=== PATIENT | female | born 1945 | race Caucasian/White ===

== ENCOUNTER 2020-09-25 01:01 | Observation (INO) | payer MEDICARE ==
[2020-09-25] VITALS (13 sets, daily range): BP systolic 82–187; BP diastolic 32–99
[~2020-09-25] VITALS: Ht 147.3 cm; Wt 45.9 kg
--- NOTE | 2020-09-25 01:05 | NUR ---
ARRIVED PT ARRIVE POV W/SON, REPORT CHRONIC DETENTION ESOSPHAGEAL SPASMS AND ISSUES. PT WAS EATING AT 7:30 PM, NOW FEELS LIKE SHE HAS SOMETHING IN HER THROAT, NOT SURE IF SPASPS OR AN OBJECT. RR REGULAR, NON-LABORED. PT DENIES SOB OR CHEST PAIN. PT A & O X 3, NAD NOTED. VITALS WNL.
[2020-09-25] MEDS ORDERED: GLUCAGEN IV STA (01:20)
[2020-09-25] MEDS ORDERED: DICY10CA3 PO (01:30)
[2020-09-25] MEDS ORDERED: METO-236 PO (01:30)
[2020-09-25] MEDS ORDERED: MELA5TAB20 PO (01:30)
--- NOTE | 2020-09-25 01:33 | NUR ---
20 GA R AC X 1 ATTEMPT. PT RASHMI WELL.
[2020-09-25] MEDS ORDERED: GLUCAGEN ONE (01:34)
--- NOTE | 2020-09-25 01:41 | ER.PDOC ---
General Chief Complaint: General Complaint Stated Complaint: OBJECT IN THROAT TRAVEL OUT OF US: No Time seen by MD: 01:20 Source: patient Exam Limitations: no limitations History of Present Illness Initial Comments Patient is a 75-year-old woman who presents to the emergency department with a chief complaint of being unable to swallow. Patient states she has had troubles with her esophagus intermittently for quite some time. Patient states tonight she was eating chicken and potatoes around 730 last night when she felt like some of the food got stuck in her chest. Patient describes a fullness in her mid chest that is dull, nonradiating, constant. Patient states she has tried to take her medications since that time however she is vomited every time she is tried to take anything by mouth. She denies any diarrhea, black or bloody stool . She denies any difficulty with breathing. She denies any fever. Patient states she saw her GI doctor about 30 years ago but has not seen one since. Timing/Duration: 4-6 hours Severity: moderate Modifying Factors: improves with eating Associated Symptoms: chest pain, nausea/vomiting Allergies: Coded Allergies: codeine (Verified Allergy, Unknown, VOMITING, 09/25/20) Home Meds Reported Medications Melatonin (MELATONIN) 5 Mg Tab.rapdis, 5 MG PO HS, TAB 09/25/20 Metoprolol Succinate (METOPROLOL SUCCINATE) 25 Mg Tab.er.24h, 25 MG PO DAILY24, TABLET 09/25/20 Dicyclomine Hcl (DICYCLOMINE HCL) 10 Mg Capsule, 10 MG PO TID, CAPSULE 09/25/20 Past Medical History Medical History: hypertension, other Surgical History: cholecystectomy LMP (females 10-50): postmenopause Family History Significant Family History: no pertinent family hx Social History Smoking: non-smoker Alcohol Use: none Drug Use: none Review of Systems Constitutional: denies fever EENTM: denies throat pain Respiratory: denies cough, denies shortness of breath Cardiovascular: chest pain Gastrointestinal: denies abdominal pain, denies diarrhea; nausea, vomiting Genitourinary: denies hematuria Musculoskeletal: denies neck pain Skin: denies rash Psychiatric/Neurological: denies numbness, denies weakness Hematologic/Lymphatic: denies easy bleeding All Other Systems: Reviewed and Negative Physical Exam General Appearance: No Apparent Distress, WD/WN EENT: eyes nml inspection, nml ENT inspection, pharynx nml Neck: Non-Tender, Full Range of Motion, Supple Respiratory: chest non-tender, lungs clear, normal breath sounds, no respiratory distress, no accessory muscle use CVS: reg rate & rhythm, no murmur, no gallop, pulses nml, nml capillary refill Gastrointestinal: Normal Bowel Sounds, No Organomegaly, No Pulsatile Mass, Non Tender, Soft Back: Normal Inspection, No CVA Tenderness, No Vertebral Tenderness Extremities: Normal Range of Motion, Non-Tender, Normal Inspection, No Pedal Edema, No Calf Tenderness, Normal Capillary Refill Neurologic/Psychiatric: content management specialist II-XII NML as Tested, No Motor/Sensory Deficits, Alert, Normal Mood/Affect, Oriented x 3 Skin: Normal Color, Warm/Dry Results/Orders Results/Orders Orders - JESUS PHELPS MD Saline Lock (09/25/20 01:20) Glucagon,Human Recombinant (Glucagen) (09/25/20 01:20) Glucagon,Human Recombinant (Glucagen) (09/25/20 01:34) Admit Orders (09/25/20 02:45) Diphenhydramine Hcl (Benadryl) (09/25/20 02:45) Surgical Consult (09/25/20 02:45) Vital Signs Date Time Temp Pulse Resp B/P (MAP) Pulse Ox O2 Delivery O2 Flow Rate FiO2 09/25/20 02:00 98.3 89 18 152/79 (103) 96 09/25/20 01:20 98.3 99 20 09/25/20 01:20 98.3 99 20 187/76 (113) 96 Room Air 09/25/20 01:20 98.3 99 20 96 Administered Medications Medications (Trade) Dose Ordered Sig/Bre Route PRN Reason Start Time Stop Time Status Last Admin Dose Admin Glucagon (Glucagen) 1 mg STAT STAT IV 09/25/20 01:20 09/25/20 01:22 DC 09/25/20 01:40 1 MG Progress Progress Patient was given glucagon 1 mg IV but had no change in her symptoms. Patient was given some water but was unable to hold it down. Patient has esophageal food impaction. At [address] Seals of general surgery Who requests that we schedule the patient for procedure at 9 AM for her esophageal food impaction. He requested that the patient be placed on a status to the hospitalist until her procedure. At [address] Roberts, the hospitalist, who agrees to place patient on observation status. ER DEPART Departure Time of Disposition: 02:53 Disposition: 09 ADMITTED INPATIENT Impression: Primary Impression: Esophageal obstruction due to food impaction Condition: Stable Referrals: NALINI FARIAS MD (PCP) PRIMARY CARE PROVIDER Duration or Time Spent with Pa: 30 minutes JESUS PHELPS MD Sep 25, 2020 01:41
--- NOTE | 2020-09-25 02:34 | NUR ---
DUNCAN PHELPS ON PHONE WITH DR. SONG REGARDING PT AT THIS TIME.
[2020-09-25] MEDS ORDERED: BENADRYL IV STA (02:45)
--- NOTE | 2020-09-25 02:46 | NUR ---
FLUID CHALLENGE UNSUCCESSFUL, OR CONSULTED NOTED. PENDING ADMIT OBS.
[2020-09-25] MEDS ORDERED: BENADRYL ONE (03:04)
--- NOTE | 2020-09-25 03:09 | NUR ---
BENEDRYL 12.5 MG GIVEN IVP. PENDING TRANSFER TO MS RM 336. CALLED TO REPORT, NURSE WILL CALL BACK. PT REMAINS DISTRESS FREE. VITALS REMAIN WNL. RR REGULAR, UNLABORED, SPEECH CLEAR. NO COUGH, PT NOT SPITTING. HS NOTIFIED OF SURGICAL TEAM CONSULT FOR 9 AM.
--- NOTE | 2020-09-25 03:12 | NUR ---
ADMIT PT ADMITTED OBS TO MS 336. REPORT TO BE GIVEN AT BEDSIDE ON MS.
[2020-09-25] MEDS ORDERED: HEPARIN-D5W 20,000 UNIT/500 ML 500 ML IV ONE (08:10)
--- NOTE | 2020-09-25 08:24 | NUR ---
0824 TO OR PATIENT TAKEN TO DSU VIA BED BY Christina SHAW RN AT 0824. PATIENT ALERT AND ORIENTED, SON AT BEDSIDE. PATIENT COMPLETED CHG BATH. SBAR ON CHART. CON SENT REMAINS UN SIGNED AT THIS TIME. PHYSICIAN HAS NOT SEEN PATIENT.
[2020-09-25] MEDS: LACTATED RINGERS 1,000 ML IV SCH ×2 (08:30→10:00)
[2020-09-25] MEDS ORDERED: LACTATED RINGERS 1,000 ML ONE ×2 (08:31→09:44)
[2020-09-25] MEDS ORDERED: KETAMINE HCL-Non-Preferred ONE (08:50)
[2020-09-25] MEDS ORDERED: DIPRIVAN IV ONE (08:50)
[2020-09-25] MEDS ORDERED: VERSED ONE (08:50)
[2020-09-25] MEDS ORDERED: EPHEDRINE SULFATE ONE (09:45)
--- NOTE | 2020-09-25 09:54 | PRM.OPH ---
Immediate Post Op Note Summary of Operation Date: Sep 25, 2020 Time: 09:45 Pre-Operative DX: Esophageal foreign body Post-OP DX: Esophageal forein body Anesth.Used: Sedation Indications: This is a 75 year old woman with a history of dysphagia and foreign bodies within the esophagus who presents after consuming chicken 12 hours ago with an esophageal impaction. The patient was counseled on the risks, benefits, and alternatives to EGD and provided informed consent. Physician's Summary: Patient identification and the proposed procedure were verified prior to the procedure by the physician, the nurse, and the CONTACT LENS BLOCKER. The procedure was verified in the pre-procedure area. ASA Grade Assessment: III After obtaining informed consent the patient underwent sedation. The endoscope was passed under direct vision. Throughout the procedure, the patient's pulse, blood pressure, and oxygen saturation were monitored continuously. The Endoscope was introduced into the mouth and advanced to the second part of the duodenum. I was present and participated during the entire procedure, including non-reis portions, and during the administration and monitoring of moderate sedation. The upper GI endoscopy was accomplished without difficulty. The patient tolerated the procedure well. Findings: Esophagus: Mild (Grade A) esophagitis with edema and ulceration just proximal to and at the level of the Z-line; biopsies were taken. Hemostasis was excellent. The Z-line was located at 40cm from the teeth. There was no evidence of a hiatal hernia. A large food bolus was morcellated and advanced into the gastric lumen. Stomach: Evidence of mild gastritis within the antrum and body; retroflexion revealed no masses or ulceration. The pylorus appeared normal. Duodenum: The entire duodenum appeared normal. Impression: Mild esophagitis Gastritis Normal duodenum Recommendation: - Discharge with PPI and carafate; follow up with GI/PCP regarding continuing PPI and carafate therapy given esophagitis and chronic GERD - Return to surgery clinic 1 week to follow up biopsy result - Dysphagia diet - Avoid smoking, alcohol use Assistants: Listed Assisting Physicians NA Specimen(s) Removed: List Specimen: Esophageal biopsy Antral biopsy Estimated Blood Loss: EBL/ESTIMATED BLOOD LOSS: (MIL: 0 Complications: Complications: None Assessment & Plan: Assessment & Plan: See above MACARENA SONG MD Sep 25, 2020 09:54
[2020-09-25] MEDS ORDERED: OMEP40CA41 PO (10:46)
[2020-09-25] MEDS ORDERED: SUCR1ORA5 PO (10:46)
--- NOTE | 2020-09-25 10:46 | NUR ---
1020m patient returned from OR, drowsy arousable to voice. Son in room with patient. VSS, in no acute distress. Resting quietly
--- NOTE | 2020-09-25 12:50 | PCM.HP ---
History of Present Illness Hx of Present Illness 75-year-old female with no past medical history who presented to ER due to dysphagia with difficulty swallowing after eating dinner. Patient was having dinner ate a piece of chicken and had severe difficulty with swallowing. Patient was concerned and went to ER. Patient denies any shortness of breath or hypoxia, dizziness no blood with cough. Patient only states that it felt very severe discomfort with swallowing and felt as if there is a foreign body in her throat. Past medical history:Hypertension Past surgical history: Noncontributory Family history noncontributory Social history: Denies any history of tobacco use, alcohol, illicit drug use Allergies: Allergic to codeine gets a rash Review of Systems Constitutional: No: Fever, Chills, Sweats ENT: Throat pain Respiratory: No: Cough, Dry, Shortness of breath, SOB with excertion Cardiovascular: No: Chest Pain, Palpitations Gastrointestinal: No: Nausea, Vomiting Genitourinary: No Dysuria, No Frequency Skin: No: Rash, Lesions Neurological: No: Weakness, Numbness Allergies: Coded Allergies: codeine (Verified Allergy, Unknown, VOMITING, 09/25/20) Scheduled Dicyclomine Hcl (Dicyclomine Hcl), 10 MG PO TID, (Reported) Melatonin (Melatonin), 5 MG PO HS, (Reported) Metoprolol Succinate (Metoprolol Succinate), 25 MG PO DAILY24, (Reported) Omeprazole (Omeprazole), 40 MG PO DAILY24 Sucralfate (Carafate), 1 GM PO AC VTE VTE Risk Total Score: 3 VTE Risk Score VTE Risk: Score 0-1 = Low Risk (Aggressive mobilization; early ambulation; no VTE prophylaxis required) Score 2: Moderate Risk (Intermittent/Pneumatic Compression Device OR Lovenox/Heparin/Coumadin) Score 3-4: High Risk (Intermittent/Pneumatic Compression Device AND Lovenox/Heparin/Coumadin) Score > or =5: Highest Risk (Intermittent/Pneumatic Compression Device AND Lovenox/Heparin/Coumadin) VTE VTE Present on Admission: No Currently receiving anticoagul: No VTE Risk Total Score: 3 Exam Vital Signs Vital Signs Date Time Temp Pulse Resp B/P (MAP) Pulse Ox O2 Delivery O2 Flow Rate FiO2 09/25/20 11:59 79 113/52 (72) 94 Room Air 09/25/20 10:10 97.5 16 09/25/20 10:00 10 General Appearance: Alert, Oriented X3, Cooperative, No acute distress HEENT: Atraumatic, PERRLA, EOMI Respiratory: Clear to auscultation, Normal air movement Cardiovascular: Regular rate, Normal S1, Normal S2, No murmurs Abdominal: Normal bowel sounds, Soft, No tenderness Extremities: No clubbing, No cyanosis, No edema Skin: No rash, No breakdown, No lesions Neuro: Normal gait, Normal speech, Strength at 5/5 X4 ext Psych/Mental Status: Mental status NL, Mood NL Assessment/Plan Assessment/Plan Assessment/Plan 75-year-old female with possible history of hypertension admitted due to foreign body obstruction and gastric lumen Consulted surgery, appreciate their evaluation and recommendations and intervention Patient underwent EGD was found to have foreign body in gastric lumen was removed Also noted found gastritis likely secondary to foreign body Patient tolerated procedure well recovered well Surgery okay for patient be discharged same day Patient to follow-up with surgery outpatient Patient continue omeprazole and Carafate outpatient Patient continue hypertension medicine Disposition: Patient tolerated procedure recovering. If patient able to tolerate p.o. diet in the afternoon patient can be discharged same day. CHRISSIE ANGUOL MD Sep 25, 2020 12:50
--- NOTE | 2020-09-25 12:51 | PRM.DC ---
DC Summary Date of Discharge: Sep 25, 2020 HPI/Course 75-year-old female with no past medical history who presented to ER due to dysphagia with difficulty swallowing after eating dinner. Patient was having dinner ate a piece of chicken and had severe difficulty with swallowing. Patient was concerned and went to ER. Patient denies any shortness of breath or hypoxia, dizziness no blood with cough. Patient only states that it felt very severe discomfort with swallowing and felt as if there is a foreign body in her throat. Past medical history:Hypertension Past surgical history: Noncontributory Family history noncontributory Social history: Denies any history of tobacco use, alcohol, illicit drug use Allergies: Allergic to codeine gets a rash Vitals/I&O VS - Last 72 Hours, by Label Date Time Temp Pulse Resp B/P (MAP) Pulse Ox O2 Delivery O2 Flow Rate FiO2 09/25/20 11:59 79 113/52 (72) 94 Room Air 09/25/20 10:10 97.5 92 16 118/58 (78) 98 Room Air 09/25/20 10:00 97.0 89 14 118/52 (74) 100 Non-Rebreather 10 09/25/20 09:55 97.4 94 14 131/66 (87) 100 Non-Rebreather 10 09/25/20 09:50 97.4 94 14 119/55 (76) 100 Non-Rebreather 10 09/25/20 09:45 97.4 72 14 82/32 (49) 100 Non-Rebreather 10 09/25/20 09:40 97.4 71 14 86/48 (61) 100 Non-Rebreather 10 09/25/20 09:38 10 09/25/20 09:38 97.3 77 14 99/44 (62) 100 Non-Rebreather 10 09/25/20 08:13 98.2 81 19 151/80 (103) 95 Room Air 09/25/20 08:00 Room Air Scheduled Dicyclomine Hcl (Dicyclomine Hcl), 10 MG PO TID, (Reported) Melatonin (Melatonin), 5 MG PO HS, (Reported) Metoprolol Succinate (Metoprolol Succinate), 25 MG PO DAILY24, (Reported) Omeprazole (Omeprazole), 40 MG PO DAILY24 Sucralfate (Carafate), 1 GM PO AC Sepsis Reassessment @ DC 09/25/20 Discharge Plan Patient had procedure tolerated procedure well, had foreign body removed from the gastric lumen and mild signs of gastritis Patient discharged with omeprazole and Carafate Patient to follow-up with surgery and PCP outpatient Prescription/RX: Active Scripts Active Carafate (Sucralfate) 1 Gm/10 Ml Oral.susp 1 Gm PO AC 30 Days Omeprazole 40 Mg Capsule.dr 40 Mg PO DAILY24 30 Days Reported Melatonin 5 Mg Tab.rapdis 5 Mg PO HS Metoprolol Succinate 25 Mg Tab.er.24h 25 Mg PO DAILY24 Dicyclomine Hcl 10 Mg Capsule 10 Mg PO TID CHRISSIE ANGULO MD Sep 25, 2020 12:51
--- NOTE | 2020-09-25 13:48 | NUR ---
[id number] DISCHARGE PATIENT ASSISTED WITH DRESSING AND PREPARATION TO GO HOME. IV DC'D WITH CATHETER INTACT; HEMOSTASIS WITH COTTON AND TAPE. REVIEWED DISCHARGE INSTRUCTIONS WITH FAMILY AND PATIENT, [facility] QUESTIONS ANSWERED. PATIENT TAKEN TO PERSONAL FAMILY VEHICLE WITH SON AT SIDE. ASSISTED INTO VEHICLE AND FAMILY ASSUMED CARE OF PATIENT.
== END 2020-09-25 13:35 | disposition home or self-care (01) ==
LOC: ER 01:01 → MS 02:45
PROVIDERS: ADMIT Family Medicine; ATTEND Family Medicine
DX: T18.128A Food in esophagus causing other injury, initial encounter (principal); K20.90 Esophagitis, unspecified without bleeding; K29.70 Gastritis, unspecified, without bleeding; I10 Essential (primary) hypertension; Z79.899 Other long term (current) drug therapy
CPT/HCPCS: 43239; 43247; 88305; 88342; 96374; 96375; 99284; G0378 ×2; J1200; J1610; J2250; J3490 ×2; J7120; 99285